=== PATIENT | female | born 1945 | race African-American/Black ===

== ENCOUNTER 2017-10-12 17:38 | Emergency (ER) | payer MEDICARE ==
[~2017-10-12] VITALS: Ht 162.6 cm; Wt 65.8 kg
[~2017-10-12 17:38] MED LIST: NORCO 5-325 TA1 EAC1 ORAL; VALACYCLOVIR500 MG ORAL
[2017-10-12 17:51] VITALS: BP 138/63
[2017-10-12] MEDS ORDERED: Methocarbamol 750mg tab ORAL ONE (18:30)
[2017-10-12] MEDS ORDERED: Ketorolac 30mg Inj IM ONE (18:30)
[2017-10-12] MEDS ORDERED: ROBAXIN-750750 MG PO (19:06)
[2017-10-12] MEDS ORDERED: TYLENOL EXTRA500 MG ORAL (19:06)
[2017-10-12 19:15] VITALS: BP 129/64
[2017-10-12 19:30] VITALS: BP 138/63
--- NOTE | 2017-10-12 19:42 | Emergency Room Report ---
History of Present Illness General Chief Complaint: Pain Source: Patient Present Illness HPI 72-year-old female presents to ED for evaluation. Complaining of right leg pain started yesterday. Denies trauma. Notes pain to her right thigh. Pain is throbbing, 9/10, nonradiating. Patient is prior history of right knee pain. Denies any chest pain or shortness of breath. Denies any leg swelling. No other aggravating or relieving factors. Denies any other associated symptom Allergies: Coded Allergies: CODEINE (Verified Allergy, Unknown, 06/03/15) Patient History Past Medical History: HTN Past Surgical History: none Pertinent Family History: none Social History: Denies: smoking, alcohol use, drug use Now: No Immunizations: UTD Reviewed Nursing Documentation: PMH: Agreed, PSxH: Agreed Nursing Documentation-PMH Past Medical History: No Stated History Hx Hypertension: Yes Review of Systems All Other Systems: negative except mentioned in HPI Physical Exam Vital Signs Date Time Temp Pulse Resp B/P (MAP) Pulse Ox O2 Delivery O2 Flow Rate FiO2 10/12/17 17:51 97.8 73 18 138/63 100 Room Air 97.8 Sp02 EP Interpretation: reviewed, normal General Appearance: no apparent distress, alert, GCS 15, non-toxic Head: normocephalic Eyes: bilateral eye normal inspection, bilateral eye PERRL ENT: normal ENT inspection Neck: normal inspection Respiratory: normal inspection Cardiovascular #1: normal inspection Gastrointestinal: normal inspection Rectal: deferred Genitourinary: no CVA tenderness Musculoskeletal: normal range of motion, no calf tenderness, tender - R hamstring. Neurologic: alert, oriented x3, responsive, motor strength/tone normal, sensory intact, speech normal Psychiatric: normal inspection Skin: normal inspection Lymphatic: normal inspection Medical Decision Making Diagnostic Impression: Primary Impression: Hamstring strain Qualified Codes: S76.319A - Strain of muscle, fascia and tendon of the posterior muscle group at thigh level, unspecified thigh, initial encounter ER Course Hospital Course 72-year-old female presents ED complaining of right thigh pain. no trauma Differential diagnoses include: Fracture, dislocation, sprain, contusion, bursitis Clinical course Patient placed on stretcher. After initial history, physical exam reveals an elderly female in no acute distress. There is some tenderness to the hamstring component of the right thigh. No bruising or swelling. No calf tenderness or swelling. Consistent with a hamstring strain. Discussed findings with patient. Likely from walking on the right knee Given Toradol, Robaxin here. On reassessment pain improved Diagnosis - hamstring strain stable and discharged to home with prescription for Tylenol, Robaxin. use heating pad. Followup with PMD. Return to ED if symptoms recur or worsen Last Vital Signs Date Time Temp Pulse Resp B/P (MAP) Pulse Ox O2 Delivery O2 Flow Rate FiO2 10/12/17 18:25 97.8 10/12/17 17:51 Room Air 10/12/17 17:51 73 18 138/63 100 Status: improved Disposition: HOME, SELF-CARE Condition: Stable Scripts Methocarbamol* (ROBAXIN-750*) 750 Mg Tablet 750 MG PO QID, #28 TAB 0 Refills Prov: MAEGAN DEJESUS M.D. 10/12/17 Acetaminophen* (TYLENOL EXTRA STRENGTH*) 500 Mg Tablet 500 MG ORAL Q6H Y for Mild Pain/Temp > 100.5, #30 TAB 0 Refills Prov: MAEGAN DEJESUS M.D. 10/12/17 Patient Instructions: Hamstring Strain With [facility] MAEGAN DEJESUS M.D. Oct 12, 2017 19:42
== END 2017-10-12 19:30 | disposition home or self-care (01) ==
LOC: EMR 18:15
DX: S76.011A Strain of muscle, fascia and tendon of right hip, initial encounter (principal); X58.XXXA Exposure to other specified factors, initial encounter; Y92.9 Unspecified place or not applicable; I10 Essential (primary) hypertension
CPT/HCPCS: 96372; 99284; J1885

== ENCOUNTER 2020-03-16 19:11 | Emergency (ER) | payer MEDICARE, BC ==
[~2020-03-16] VITALS: Ht 162.6 cm; Wt 72.6 kg
[2020-03-16 19:05] VITALS: BP 171/92
[~2020-03-16 19:11] MED LIST changes: +ROBAXIN-750750 MG PO; +TYLENOL EXTRA500 MG ORAL
--- NOTE | 2020-03-16 19:11 | NUR ---
ED Nurse Note: Pt walked in to ED c/o cough x2 days and SOB started last night. Denies fever/ chills. Denies CP. AAOX4, verbally responsive. On room air, 95%. Covid isolation precaution observed.
[2020-03-16] MEDS ORDERED: Albuterol ud Inhalation HHN ONE (20:00)
[2020-03-16] MEDS ORDERED: Solu-MEDROL 125mg Inj IVP ONE (20:00)
[2020-03-16] MEDS ORDERED: Ipratropium 0.02% Inh Soln 2.5ml UD HHN ONE (20:00)
[2020-03-16 20:12] LABS: APPEARANCE,URINE CLEAR; BILIRUBIN, URINE NEGATIVE (NEGATIVE); GLUCOSE, URINE (UA) NEGATIVE (NEGATIVE); KETONES,URINE NEGATIVE (NEGATIVE); LEUKOCYTE ESTERASE ,URINE 1+ (NEGATIVE); NITRITE,URINE NEGATIVE (NEGATIVE); PH,URINE 5 (4.5-8.0); PROTEIN,URINE 2+ (NEGATIVE); UROBILINOGEN,URINE NORMAL MG/DL (0.0-1.0)
[2020-03-16 20:13] LABS: COLOR,URINE YELLOW
--- NOTE | 2020-03-16 20:15 | NUR ---
ED Nurse Note: blood and rapid covid collected and sent to lab
[2020-03-16 20:32] LABS: BASOPHILS % (AUTO) 1.8 % (0.0-2.0); EOSINOPHILS % (AUTO) 7.9 % (0.0-3.0); HEMATOCRIT 41.3 % (37.0-47.0); HEMOGLOBIN 13.4 G/DL (12.0-16.0); LYMPHOCYTES % (AUTO) 13.5 % (20.0-45.0); MEAN CORPUSCULAR VOLUME 97 FL (80-99); MONOCYTES % (AUTO) 6.1 % (1.0-10.0); NEUTROPHILS % (AUTO) 70.8 % (45.0-75.0); PLATELET COUNT 247 K/UL (150-450); RED BLOOD COUNT 4.27 M/UL (4.20-5.40); RED CELL DISTRIBUTION WIDTH 12.7 % (11.6-14.8); WHITE BLOOD COUNT 13.1 K/UL (4.8-10.8)
[2020-03-16 20:50] LABS: ANION GAP 8 mmol/L (5-15); BLOOD UREA NITROGEN 32 mg/dL (7-18); CARBON DIOXIDE 30 MMOL/L (21-32); CHLORIDE 102 MMOL/L (98-107); CREATININE 1.4 MG/DL (0.55-1.30); SODIUM 140 MMOL/L (136-145)
--- NOTE | 2020-03-16 20:54 | NUR ---
ED Nurse Note: RT contacted for breathing treatment, aware of negative covid result.
[2020-03-16 21:01] LABS: ALANINE AMINOTRANSFERASE 27 U/L (12-78); ALBUMIN 4.5 G/DL (3.4-5.0); ALBUMIN/GLOBULIN RATIO 1.1 (1.0-2.7); ALKALINE PHOSPHATASE 100 U/L (46-116); ASPARTATE AMINO TRANSFERASE 26 U/L (15-37); BILIRUBIN,TOTAL 0.6 MG/DL (0.2-1.0); CREATINE KINASE 222 U/L (26-308)
--- NOTE | 2020-03-16 22:14 | Emergency Room Report ---
History of Present Illness General Chief Complaint: Dyspnea/Respdistress Source: Patient Present Illness HPI Patient presents with greater than 1 week of worsening dyspnea on exertion with wheezing. She denies any fevers or chills. She has had a mild productive cough with some minimally yellow phlegm. She denies any history of asthma and is never had wheezing before. She denies exposure to COVID-19 although she has been out with shopping but observes social isolation and wears a mask. She denies any chest pain. There is no calf pain or edema. Risk factors for cardiac disease: Possible secondhand smoke, hypertension. Negative for family history, high cholesterol or diabetes. She suffers from chronic back and foot problems. No sore throat, chest pain, palpitations, nausea, vomiting, diarrhea, dysuria, abdominal pain, rashes, depression, anxiety, visual changes, dizziness, headache. Allergies: Coded Allergies: CODEINE (Verified Allergy, Unknown, 06/03/15) COVID-19 Screening Contact w/high risk pt: No Experienced COVID-19 symptoms?: Yes COVID-19 Testing performed [employer] DEL[employer]ERY [employer]IVER: No Patient History Past Medical History: see triage record Past Surgical History: other - Hip surgery 2018 Social History: Denies: smoking, alcohol use, drug use Social History Narrative insurance, lives with his sister who smokes but not around the patient Now: No Reviewed Nursing Documentation: PMH: Agreed; PSxH: Agreed Nursing Documentation-PMH Hx Hypertension: Yes Review of Systems All Other Systems: negative except mentioned in HPI Physical Exam Vital Signs Date Time Temp Pulse Resp B/P (MAP) Pulse Ox O2 Delivery O2 Flow Rate FiO2 03/16/20 19:04 99.0 97 21 171/92 (118) 95 Room Air 03/16/20 21:01 21 Sp02 EP Interpretation: reviewed, normal General Appearance: well appearing, no apparent distress, GCS 15 Head: normocephalic Eyes: bilateral eye normal inspection, bilateral eye PERRL, bilateral eye EOMI ENT: moist mucus membranes Neck: supple Respiratory: no respiratory distress, wheezing - End expiratory no cough Cardiovascular #1: regular rate, rhythm, no edema Cardiovascular #2: 2+ radial (R) Gastrointestinal: normal inspection, normal bowel sounds, non tender, no mass, non-distended Musculoskeletal: back normal, normal range of motion, no calf tenderness, gait/ station normal Neurologic: alert, oriented x3, grossly normal Psychiatric: mood/affect normal Skin: no rash, warm/dry Medical Decision Making Diagnostic Impression: Primary Impression: Bronchospasm Additional Impressions: Eosinophilia Renal insufficiency ER Course Patient presents with dyspnea on exertion with wheezing. Differential includes asthma, bronchitis, COVID-19, acute coronary syndrome, pulmonary embolus, allergy amongst others. Evaluation with EKG, chest x-ray and labs. Patient placed on a court recording monitor. In order to give a breathing treatment the patient needs to be tested for COVID-19 (this is appropriate as this is one of the possible causes of her dyspnea). Patient treated with Solu-Medrol and breathing treatments. EKG without injury. Chest x-ray no infiltrates. Labs remarkable for leukocytosis and some eosinophilia. Troponin negative. renal insufficiency. Patient improved with treatment. Exercised and no dyspnea or wheezing. Discussed findings with patient. Discussed treatment plan. Patient taught how to use an inhaler. No medical emergency at this time. Patient stable for outpatient observation and treatment. Laboratory Tests Test 03/16/20 19:35 03/16/20 20:11 Urine Color Yellow Urine Appearance Clear Urine pH 5 (4.5-8.0) Urine Specific Mcdade 1.020 (1.005-1.035) Urine Protein 2+ (NEGATIVE) H Urine Glucose (UA) Negative (NEGATIVE) Urine Ketones Negative (NEGATIVE) Urine Blood 2+ (NEGATIVE) H Urine Nitrite Negative (NEGATIVE) Urine Bilirubin Negative (NEGATIVE) Urine Urobilinogen Normal MG/DL (0.0-1.0) Urine Leukocyte Esterase 1+ (NEGATIVE) H Urine RBC 2-4 /HPF (0 - 2) H Urine WBC 2-4 /HPF (0 - 2) Urine Squamous Epithelial Cells Few /LPF (NONE/OCC) Urine Bacteria Few /HPF (NONE) White Blood Count 13.1 K/UL (4.8-10.8) H Red Blood Count 4.27 M/UL (4.20-5.40) Hemoglobin 13.4 G/DL (12.0-16.0) Hematocrit 41.3 % (37.0-47.0) Mean Corpuscular Volume 97 FL (80-99) Mean Corpuscular Hemoglobin 31.3 PG (27.0-31.0) H Mean Corpuscular Hemoglobin Concent 32.3 G/DL (32.0-36.0) Red Cell Distribution Width 12.7 % (11.6-14.8) Platelet Count 247 K/UL (150-450) Mean Platelet Volume 6.4 FL (6.5-10.1) L Neutrophils (%) (Auto) 70.8 % (45.0-75.0) Lymphocytes (%) (Auto) 13.5 % (20.0-45.0) L Monocytes (%) (Auto) 6.1 % (1.0-10.0) Eosinophils (%) (Auto) 7.9 % (0.0-3.0) H Basophils (%) (Auto) 1.8 % (0.0-2.0) Prothrombin Time 11.1 SEC (9.30-11.50) Prothrombin Time INR 1.0 (0.9-1.1) Activated Partial Thromboplast Time 26 SEC (23-33) Sodium Level 140 MMOL/L (136-145) Potassium Level 4.0 MMOL/L (3.5-5.1) Chloride Level 102 MMOL/L (98-107) Carbon Dioxide Level 30 MMOL/L (21-32) Anion Gap 8 mmol/L (5-15) Blood Urea Nitrogen 32 mg/dL (7-18) H Creatinine 1.4 MG/DL (0.55-1.30) H Estimated Glomerular Filtration Rate 44.5 mL/min (>60) Glucose Level 121 MG/DL (74-106) H Lactic Acid Level 1.40 mmol/L (0.4-2.0) Calcium Level 10.0 MG/DL (8.5-10.1) Magnesium Level 2.2 MG/DL (1.8-2.4) Total Bilirubin 0.6 MG/DL (0.2-1.0) Aspartate Amino Transferase (AST) 26 U/L (15-37) Alanine Aminotransferase (ALT) 27 U/L (12-78) Alkaline Phosphatase 100 U/L (46-116) Total Creatine Kinase 222 U/L (26-308) Troponin I 0.001 ng/mL (0.000-0.056) Pro-B-Type Natriuretic Peptide 411 pg/mL (0-125) H Total Protein 8.7 G/DL (6.4-8.2) H Albumin 4.5 G/DL (3.4-5.0) Globulin 4.2 g/dL Albumin/Globulin Ratio 1.1 (1.0-2.7) Lipase 187 U/L (73-393) Microbiology Date/Time Source Procedure Growth Status 03/16/20 20:11 Nasopharynx SARS-CoV-2 RdRp Gene Assay - Final Complete EKG Diagnostic Results Rate: normal Rhythm: NSR ST Segments: no acute changes Rhythm Strip Diag. Results EP Interpretation: yes Rhythm: NSR, no PVC's, no ectopy Chest X-Ray Diagnostic Results Chest X-Ray Diagnostic Results : Chest X-Ray Ordered: Yes # of Views/Limited/Complete: 1 View Indication: Shortness of Breath EP Interpretation: Yes Interpretation: no consolidation, no effusion, no pneumothorax Impression: No acute disease Electronically Signed by: Electronically signed by Glen Márquez MD Last Vital Signs Date Time Temp Pulse Resp B/P (MAP) Pulse Ox O2 Delivery O2 Flow Rate FiO2 03/16/20 22:25 98.5 85 19 128/64 99 Room Air 03/16/20 21:01 21 Status: improved Disposition: HOME, SELF-CARE Condition: Improved Scripts Albuterol Sulfate* (PROAIR HFA*) 8.5 Gm Hfa.aer.ad 2 PUFFS INH Q6H, #8.5 GM 1 Refill Prov: Glen Márquez MD 03/16/20 Prednisone* (PREDNISONE*) 20 Mg Tablet 40 MG ORAL DAILY, #10 TAB Prov: Glen Márquez MD 03/16/20 Referrals: NON PHYSICIAN (PCP) Glen Márquez MD Mar 16, 2020 22:14
[2020-03-16] MEDS ORDERED: PREDNISONE20 MG ORAL (22:16)
[2020-03-16] MEDS ORDERED: PROAIR HFA8.5 GM INH (22:16)
[2020-03-16 22:25] VITALS: BP 128/64
--- NOTE | 2020-03-16 22:25 | NUR ---
ED Nurse Note: Pt cleared by ERMD for discharge. DC instructions/prescription was given and explained to pt and verbalized understanding of teachings. All medical deviecs such as ID band and IV line removed. Pt is AAO x4, ambulatory and left with all personal belongings. Accompanied by a family member.
--- NOTE | 2020-03-17 10:21 | Diagnostic Imaging Report ---
Procedure: XRAY Chest 1v Reason for study: Reason For Exam: SOB Comparison films: None. FINDINGS: A single one view chest is obtained. Vascularity is normal. The lung murray are clear bilaterally. Cardiac and mediastinal silhouette are within normal limits. CP angles are sharp. The bony thorax appear unremarkable. IMPRESSION: NO ACUTE CARDIOPULMONARY DISEASE.
== END 2020-03-16 22:25 | disposition home or self-care (01) ==
LOC: EMR 21:00
DX: J98.01 Acute bronchospasm (principal); D72.1 Eosinophilia; N28.9 Disorder of kidney and ureter, unspecified; I10 Essential (primary) hypertension; Z88.5 Allergy status to narcotic agent
CPT/HCPCS: 36415; 71045; 80053; 81003; 82550; 83605; 83690; 83735; 83880; 84484; 85025; 85610; 85730; 93005; 94640; 96374; 99284; J2930; U0002